=== PATIENT | male | born 1975 | race Caucasian/White ===

== ENCOUNTER → 2020-10-23 11:23 | Outpatient (CLI) | payer BC, SELFPAY ==
--- NOTE | ~2020-10-23 | CT_ITS ---
EXAMINATION: CT soft tissue neck w con DATE: 10/23/2020 12:00 INDICATION: Right neck mass. TECHNIQUE: Computed tomography (CT) of the neck was performed with 75 mL Omnipaque-350 intravenous co ntrast. Automated exposure control and iterative reconstruction technique were employed. The dose-yolis gth product was 471.69 mGy-cm. COMPARISON: None FINDINGS: There is a 3.2 x 2.9 cm high right internal jugular chain lymph node. There are calcificati ons in the palatine tonsils, which are symmetric. There is mucosal thickening in the paranasal sinuse s. There is a mucous retention cyst in left maxillary sinus. There is moderate cervical spondylosis. IMPRESSION: 1. Enlarged high right internal jugular chain lymph node suspicious for metastatic squamous cell carc inoma or lymphoma. Ultrasound-guided core needle biopsy is recommended. Reviewed, dictated and finalized at location A. D [employer] SUPERVISOR IMPRESSION: 1. Enlarged high right internal jugular chain lymph node suspicious for metasta tic squamous cell carcinoma or lymphoma. Ultrasound-guided core needle biopsy i s recommended.
[2020-10-23 11:50] LABS: Estimated Glomerular Filt Rate > 60
== END ==
PROVIDERS: PCP Family Medicine; Visit Provider Nurse Practitioner Family
DX: R22.1 Localized swelling, mass and lump, neck (principal)
CPT/HCPCS: 70491; Q9967

== ENCOUNTER 2021-08-13 08:00 | Outpatient (RCR) | payer OTHER, SELFPAY ==
--- NOTE | 2021-07-09 15:06 | PTOPEVAL ---
PHYSICAL THERAPY EVALUATION AND PLAN OF CARE 07-09-21 Thank you for referring Hernán Boswell to [facility].? He is scheduled to be seen for therapy? 2 x/week for 5 weeks. Please review, sign, date and return this plan of care RACHAEL. I agree with and certify that the following plan of care is medically necessary. Referring Physician Date Attending Provider: Nora Branch NP *PT Outpatient Evaluation Document 07/09/21 13:50 DILAN (Rec: 07/09/21 15:06 DILAN [id number]) Past Medical History Source of Past Medical History Patient Neurological History Hx Neurological Disorders No Significant History Cardiovascular History Hx Hypertension Yes: taking lisinopril Respiratory History Hx COVID-19 Yes: 2x-Jun 2020; Gastrointestinal History Hx Hernia Yes: surgery at 7 yr old Hx Other Gastrointestinal Disorders Yes: had constipation with treatments, resolved now Genitourinary History Hx Genitourinary Disorders No Significant History Musculoskeletal History Hx Back Pain Yes: chronic back pain, avoiding surgery as long as able Endocrine History Hx Endocrine Disorders No Significant History HEENT History Hx HEENT Disorders No Significant History Evaluation Information Problem Diagnosis lymphedema and fibrosis s/p head/neck cancer Onset November 2020 Prior Level of Function Activity Level (Last 3 Months) 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, computer, office; Activity of Daily Living Ability Independent Indoor/Home Mobility Independent Community Mobility Independent Stairs Ability Independent Functional Cognition (Planning, Shopping Independent , Taking Medications) Cooking Yes Cleaning Yes Laundry Yes Shopping Yes Driving Yes Home Setting Home Type House Living Situation With Spouse Comments Additional Prior Level of Function have returned to full home and Comments work tasks; is supportive; grown children, no longer in the home with them; Pain Assessment Timing of Pain Assessment Timing of Pain Assessment Assessment Pain Scale Pain Scale Used Numeric (1 - 10) Self Report Pain Assessment Right Neck Reported Pain Level 3 Pain Description Numbness,Soreness,Tender on Palpati
--- NOTE | 2021-07-09 15:25 | PCPTNOTE ---
pt signed consent and I faxed info to [facility]--face sheet for insur and registration sheet for home intermittent compression pump. Issued pt a pamphlet with info on the pump.
--- NOTE | 2021-08-06 10:53 | PCPTNOTE ---
pt called and canceled today's appt;
--- NOTE | 2021-08-13 08:57 | PTOPEVAL ---
PHYSICAL THERAPY DISCHARGE 08-13-21 Refer to the clinical summary below, for his status today, compared to the initial evaluation. Mr. Boswell has made good progress and was very receptive to the education for self care and management of his lymphedema. Thank you for referring Hernán Boswell to [facility].? Please review, sign, date and return this Discharge report RACHAEL. I agree with and certify that the following plan of care is medically necessary. Referring Physician Date Attending Provider: Nora Branch NP Document 08/13/21 08:00 DILAN (Rec: 08/13/21 08:56 DILAN [id number]) Assessment Status Discharge Subjective Information Antonino reports: using Query Text:As Reported By Patient/ Flexitouch pump almost every Family day; doing his neck stretches and facial exercises throughout the day; have the information for the head garment, but not obtained yet; feel like he has good information to manage his lymphedema; is sleeping better and using white noise techniques and hearing aides to help his tinnitis; has not had any problems with eating or choking on food, if food is dry, takes in more water and does OK; agrees to discharge from PT services. Pain Assessment Timing of Pain Assessment Timing of Pain Assessment Assessment Pain Scale Pain Scale Used Numeric (1 - 10) Self Report Pain Assessment Right Neck Reported Pain Level 2 Pain Frequency Continuous Lowest Pain Intensity 2 Greatest Pain Intensity 4 Pain Score Pain Score 2: Self Report Additional Pain Score Comments not as tight in neck; always little pain and tight, but not all consuming; sleeping improved, now 7-8 hours/night; using white noise with new headband; have joined tinnitus facebook groups that have helped; have had migraines ~ 2x/wk and light headaches a few times, increase with tinnitus and stress and busy at work; kinesiotape helps the scar from being so tight; Interventions Used Inte
== END 2021-08-14 10:48 | disposition home or self-care (01) ==
LOC: ANHPT 08:00
PROVIDERS: PCP Family Medicine
DX: C09.9 Malignant neoplasm of tonsil, unspecified (principal); L59.8 Other specified disorders of the skin and subcutaneous tissue related to radiation
CPT/HCPCS: 97016; 97110; 97140; 97161